=== PATIENT | female | born 1975 | race Two or more races ===

== ENCOUNTER 2023-09-09 10:31 | Inpatient (IN) | payer MEDICAID, OTHER ==
[~2023-09-09] VITALS: Ht 175.3 cm; Wt 100.5 kg
[2023-09-09 16:45] LABS: Basophils # (auto) 0 10 ^3/uL (0-0.2); Basophils % (auto) 0.6 % (0.0-2.0); Eosinophils # (auto) 0.2 10 ^3/uL (0-0.8); Eosinophils % (auto) 2.2 % (0.0-7.0); Hemoglobin 13.1 g/dL (12.2-16.2); Lymphocytes % (auto) 35.3 % (10.0-50.0); Mean Corpuscular Hemoglobin 29.9 pg (28.0-32.0); Mean Corpuscular Hgb Conc. 32.7 g/dL (32.0-36.0); Mean Corpuscular Volume 91.4 fL (80.0-100.0); Monocytes # (auto) 0.8 10 ^3/uL (0-1.3); Monocytes % (auto) 9.7 % (0.0-12.0); Neutrophils # (auto) 4.4 10 ^3/uL (1.6-8.6); Neutrophils % (auto) 52.2 % (37.0-80.0); Red Blood Cells 4.37 10^6/uL (4.0-5.20); Red Cell Distribution Width 13.2 % (11.8-14.3); White Blood Cell 8.4 10^3/uL (4.4-10.8)
[2023-09-09] MEDS: VANCOMYCIN 1GM/200ML 200 ML IV ONE (17:00)
[2023-09-09] MEDS: MORPHINE SULFATE 4 MG/ML SYR/VIAL IV ONE (17:00)
[2023-09-09] MEDS: ONDANSETRON ODT 4 MG TAB PO ONE (17:00)
[2023-09-09] MEDS ORDERED: ACETAMINOPHEN 325 MG TAB PO PRN (17:00)
[2023-09-09] MEDS: SODIUM CHLORIDE 0.9% 1,000 ML IV SCH (17:00)
[2023-09-09 17:04] LABS: Albumin 4.8 g/dL (3.2-4.8); Alkaline Phosphatase 68 U/L (46-116); Anion Gap 5 (5-15); Aspartate Aminotransferase 10 U/L (13-40); Calcium 9.5 mg/dL (8.7-10.4); Carbon Dioxide 26 mmol/L (20-30); Chloride 106 mmol/L (98-107); Glucose 93 mg/dL (74-106); Potassium 3.2 mmol/L (3.5-5.1); Sodium 137 mmol/L (136-145)
[2023-09-09 17:05] LABS: Bilirubin, Total 0.4 mg/dL (0.2-1.0)
[2023-09-09 17:06] LABS: Alanine Aminotransferase 9 U/L (7-40); BUN/Creatinine Ratio 7.2 (10.0-20.0); Blood Urea Nitrogen < 5 mg/dL (9-23)
[2023-09-09 17:29] LABS: Triglycerides 75 mg/dL (< 150)
[2023-09-09 17:30] LABS: LDL Cholesterol 96 mg/dL (< 100)
[2023-09-09] MEDS: POTASSIUM EFFERVESENT TAB 25 MEQ PO ONE (17:30)
[2023-09-09 17:31] LABS: Cholesterol 150 mg/dL (< 200); HDL Cholesterol 43 mg/dL (40-59)
[2023-09-09] MEDS ORDERED: ALBUTEROL SULF 2.5 MG/0.5ML(0.5%) NEB SOLN NEB PRN (18:15)
[2023-09-09 18:17] VITALS: BP 119/86; PULSE 84; RESP 16; O2SAT 100
[2023-09-09 19:03] LABS: INR 1.04 (0.9-1.15); Prothrombin Time 10.9 sec (9.3-11.8)
[2023-09-09 19:06] LABS: Erythrocyte Sedimentation Rate 29 mm/hr (0-20)
[2023-09-09] MEDS: ASCORBIC ACID 500 MG TAB PO SCH (22:24)
[2023-09-09 22:59] VITALS: PULSE 73; RESP 20; O2SAT 98
[2023-09-09] MEDS: HYDROcodone-ACET 5/325MG TAB PO PRN (23:21)
[2023-09-10] VITALS (10 sets, daily range): BP systolic 110–134; BP diastolic 60–88; PULSE 69–88; RESP 14–70; TEMP 98–98.6; O2SAT 94–100
[2023-09-10 05:28] LABS: Basophils # (auto) 0 10 ^3/uL (0-0.2); Basophils % (auto) 0.6 % (0.0-2.0); Eosinophils # (auto) 0.3 10 ^3/uL (0-0.8); Eosinophils % (auto) 3.5 % (0.0-7.0); Hematocrit 36.6 % (36.0-46.0); Lymphocytes # (auto) 2.8 10 ^3/uL (0.4-5.4); Lymphocytes % (auto) 35.8 % (10.0-50.0); Mean Corpuscular Hemoglobin 29.9 pg (28.0-32.0); Mean Corpuscular Hgb Conc. 32.7 g/dL (32.0-36.0); Mean Corpuscular Volume 91.2 fL (80.0-100.0); Monocytes % (auto) 13.2 % (0.0-12.0); Neutrophils # (auto) 3.6 10 ^3/uL (1.6-8.6); Neutrophils % (auto) 46.9 % (37.0-80.0); Nucleated Red Blood Cells % 0.1 %; Red Blood Cells 4.01 10^6/uL (4.0-5.20); Red Cell Distribution Width 13.2 % (11.8-14.3); White Blood Cell 7.8 10^3/uL (4.4-10.8)
[2023-09-10] MEDS: ZINC SULFATE 220mg CAP or TAB PO SCH (10:03)
[2023-09-10] MEDS: MULTIPLE VITAMIN TAB PO SCH (10:03)
[2023-09-10 11:13] LABS: Alanine Aminotransferase < 9 U/L (7-40); Albumin 4.2 g/dL (3.2-4.8); Alkaline Phosphatase 59 U/L (46-116); Anion Gap 4 (5-15); Aspartate Aminotransferase 9 U/L (13-40); BUN/Creatinine Ratio 8.7 (10.0-20.0); Blood Urea Nitrogen 6 mg/dL (9-23); Carbon Dioxide 25 mmol/L (20-30); Chloride 107 mmol/L (98-107); Glucose 91 mg/dL (74-106); Magnesium 1.8 mg/dL (1.6-2.6); Sodium 136 mmol/L (136-145)
[2023-09-10 11:14] LABS: Bilirubin, Total 0.6 mg/dL (0.2-1.0); Total Protein 6.9 g/dL (5.7-8.2)
[2023-09-10] MEDS: cefTRIAXone 1GM/50ML D5W 50 ML IV ONE (11:44)
[2023-09-10] MEDS: ONDANSETRON HCL 4 MG/2 ML VIAL IV PRN (12:10)
[2023-09-10] MEDS: DOXYCYCLINE 100MG/250ML 250 ML IV SCH (15:30)
[2023-09-10 16:37] LABS: Urine Bacteria NONE SEEN /hpf (None Seen); Urine Blood Negative /uL (Negative); Urine Clarity Clear (Clear); Urine Color Yellow (Yellow); Urine Mucus FEW (None Seen); Urine Protein, UAD TRACE (Negative); Urine Urobilinogen Normal (Negative); Urine WBC 1 /hpf (0 - 5)
[2023-09-11] VITALS (9 sets, daily range): BP systolic 107–136; BP diastolic 53–86; PULSE 71–84; RESP 18; TEMP 98.2–98.7; O2SAT 96–100
[2023-09-11 06:16] LABS: Basophils # (auto) 0 10 ^3/uL (0-0.2); Basophils % (auto) 0.6 % (0.0-2.0); Eosinophils # (auto) 0.3 10 ^3/uL (0-0.8); Eosinophils % (auto) 3.4 % (0.0-7.0); Hemoglobin 11.7 g/dL (12.2-16.2); Lymphocytes # (auto) 2.9 10 ^3/uL (0.4-5.4); Lymphocytes % (auto) 36.5 % (10.0-50.0); Mean Corpuscular Hemoglobin 30.2 pg (28.0-32.0); Mean Corpuscular Hgb Conc. 33.4 g/dL (32.0-36.0); Mean Corpuscular Volume 90.2 fL (80.0-100.0); Monocytes % (auto) 12.4 % (0.0-12.0); Neutrophils # (auto) 3.7 10 ^3/uL (1.6-8.6); Neutrophils % (auto) 47.1 % (37.0-80.0); Red Blood Cells 3.88 10^6/uL (4.0-5.20); Red Cell Distribution Width 12.9 % (11.8-14.3)
[2023-09-11 06:33] LABS: Alanine Aminotransferase 10 U/L (7-40); Alkaline Phosphatase 60 U/L (46-116); Anion Gap 5 (5-15); Aspartate Aminotransferase 13 U/L (13-40); Bilirubin, Total 0.5 mg/dL (0.2-1.0); Carbon Dioxide 25 mmol/L (20-30); Chloride 107 mmol/L (98-107); Glucose 92 mg/dL (74-106); Magnesium 1.7 mg/dL (1.6-2.6); Potassium 3.6 mmol/L (3.5-5.1); Sodium 137 mmol/L (136-145); Total Protein 6.5 g/dL (5.7-8.2)
[2023-09-11 06:43] LABS: BUN/Creatinine Ratio 7.2 (10.0-20.0); Blood Urea Nitrogen < 5 mg/dL (9-23)
[2023-09-11] MEDS: cefTRIAXone 1GM/50ML D5W 50 ML IV SCH (08:21)
[2023-09-12 04:58] VITALS: BP 113/63; PULSE 65; RESP 18; TEMP 97.8; O2SAT 99
[2023-09-12 06:20] LABS: Basophils # (auto) 0 10 ^3/uL (0-0.2); Basophils % (auto) 0.6 % (0.0-2.0); Eosinophils # (auto) 0.3 10 ^3/uL (0-0.8); Eosinophils % (auto) 4.1 % (0.0-7.0); Hematocrit 39.3 % (36.0-46.0); Hemoglobin 12.8 g/dL (12.2-16.2); Lymphocytes # (auto) 3.2 10 ^3/uL (0.4-5.4); Lymphocytes % (auto) 42.3 % (10.0-50.0); Mean Corpuscular Hgb Conc. 32.6 g/dL (32.0-36.0); Monocytes % (auto) 13.1 % (0.0-12.0); Neutrophils % (auto) 39.9 % (37.0-80.0); Red Blood Cells 4.27 10^6/uL (4.0-5.20); White Blood Cell 7.5 10^3/uL (4.4-10.8)
[2023-09-12 06:29] LABS: Chloride 106 mmol/L (98-107); Potassium 3.6 mmol/L (3.5-5.1); Sodium 137 mmol/L (136-145)
[2023-09-12 06:30] LABS: Anion Gap 6 (5-15); Carbon Dioxide 25 mmol/L (20-30)
[2023-09-12 06:31] LABS: Calcium 9.6 mg/dL (8.5-10.1)
[2023-09-12 06:35] LABS: Glucose 89 mg/dL (74-106)
[2023-09-12 06:40] LABS: BUN/Creatinine Ratio 7.6 (10.0-20.0); Blood Urea Nitrogen < 5 mg/dL (9-23)
[2023-09-12 09:00] VITALS: BP 133/74; PULSE 63; RESP 20; TEMP 98.1; O2SAT 99
[2023-09-12] MEDS ORDERED: DOXY1CAP57 PO (09:32)
[2023-09-12] MEDS ORDERED: CEFP200T15 PO (09:32)
[2023-09-12 10:28] VITALS: BP 133/74; PULSE 63; RESP 20; TEMP 98.1; O2SAT 99
[2023-09-12] MEDS: DOXYCYCLINE 100 MG TAB/CAP PO SCH (11:23)
[2023-09-12] MEDS: CEFPODOXIME PROXETIL 200 MG TAB PO SCH (11:24)
== END 2023-09-12 12:12 | disposition home or self-care (01) | DRG 385 ==
LOC: ER 10:31 → OVERFLOW 16:56 → WEST WING 09-10 04:01
PROVIDERS: ADMIT Internal Medicine Geriatric Medicine; ATTEND Internal Medicine Geriatric Medicine
PROC: 0H9T3ZZ Drainage of Right Breast, Percutaneous Approach (ICD-10-PCS; principal; 2023-09-11)
PROC: BH40ZZZ Ultrasonography of Right Breast (ICD-10-PCS; 2023-09-11)
DX: N61.1 Abscess of the breast and nipple (principal); E66.01 Morbid (severe) obesity due to excess calories; E87.6 Hypokalemia; J45.909 Unspecified asthma, uncomplicated; F17.210 Nicotine dependence, cigarettes, uncomplicated; Z68.32 Body mass index [BMI] 32.0-32.9, adult; Z71.6 Tobacco abuse counseling; Z71.3 Dietary counseling and surveillance; Z82.49 Family history of ischemic heart disease and other diseases of the circulatory system
CPT/HCPCS: 36415; 75989; 76642; 80048; 80053; 80061; 81001; 83735; 84443; 85025; 85610; 85652; 86141; 87081; 87205; 96365; 96375; C1729; G0378; J2405; J3490; Q0162